=== PATIENT | female | born 2000 | race Two or more races ===

== ENCOUNTER 2023-09-16 09:07 | Emergency (ER) | payer BC, OTHER ==
[2023-09-16] MEDS ORDERED: ONDANSETRON 4 MG/2 ML VIAL IVPUSH ONE (09:12)
[2023-09-16] MEDS ORDERED: SODIUM CHLORIDE 0.9% 500 ML INFUS.BAG IV ONE ×2 (09:12→10:18)
[2023-09-16] MEDS ORDERED: FAMOTIDINE 20 MG/50 ML IVPB 20 MG/50 ML MG IVPB ONE ×2 (09:20→10:04)
[2023-09-16 09:27] VITALS: RESP 18; TEMP 98.7; BMI 12.0
[2023-09-16 10:02] LABS: HEMATOCRIT 47.2 % (32.4-45.2); HEMOGLOBIN 15.5 G/dL (10.7-15.3); MCH 29.1 pg (25.7-33.7); MCHC 32.7 g/dl (32.0-36.0); MEAN CELL VOLUME 88.8 fl (80-96); MEAN PLT VOLUME 8.8 fl (7.5-11.1); PLATELET COUNT 238.3 10^3/uL (134-434); RBC 5.31 10^6/uL (3.60-5.2); RDW 14.5 % (11.6-15.6); WHITE BLOOD COUNT 14.9 10^3/uL (4.0-10.8)
[2023-09-16] MEDS ORDERED: ACETAMINOPHEN 1000 MG/100 ML BAG IVPB ONE (10:17)
[2023-09-16] MEDS ORDERED: ACETAMINOPHEN INJECTION 100 ML IVPB ONE (10:20)
[2023-09-16 10:45] LABS: PLATELET ESTIMATE ADEQUATE
[2023-09-16 11:36] LABS: ALBUMIN 4.5 g/dl (3.4-5.0); BILIRUBIN,TOTAL 0.6 mg/dl (0.2-1); CALCIUM 8.5 mg/dl (8.5-10.1); CREATININE 0.7 mg/dl (0.6-1.3); POTASSIUM 4.8 mmol/L (3.5-5.1)
[2023-09-16 11:54] VITALS: BP 110/56; PULSE 60
== END 2023-09-16 12:07 | disposition home or self-care (01) ==
LOC: FER 09:07
PROC: 3E033GC Introduction of Other Therapeutic Substance into Peripheral Vein, Percutaneous Approach (ICD-10-PCS; principal; 2023-09-16)
PROC: 3E033NZ Introduction of Analgesics, Hypnotics, Sedatives into Peripheral Vein, Percutaneous Approach (ICD-10-PCS; 2023-09-16)
PROC: 3E033GC Introduction of Other Therapeutic Substance into Peripheral Vein, Percutaneous Approach (ICD-10-PCS; 2023-09-16)
DX: R11.2 Nausea with vomiting, unspecified (principal); R51.9 Headache, unspecified; R42 Dizziness and giddiness
CPT/HCPCS: 36415; 80053; 81025; 85027; 99284-25